=== PATIENT | male | born 1960 | race Caucasian/White ===

== ENCOUNTER → 2021-03-23 | Outpatient (CLI) | payer BC ==
--- NOTE | 2021-03-23 11:06 | RAD ---
Bilateral carotid arterial duplex study 03/23/2021 CLINICAL HISTORY: Pulsations in the right inferior neck. TECHNIQUE: Using a combination of real-time ultrasound imaging and color-flow and pulse Doppler imagi ng techniques, duplex evaluation of the common carotid arteries, carotid bifurcations and internal ca rotid arteries along with the vertebral arteries within the neck was performed. Multiple images were obtained. Stenosis calculations for carotid ultrasound are based on validated velocity measurements which are n oted to correlate with the NASCET methodology. FINDINGS: No significant atheromatous plaque formation seen involving either carotid bifurcation or t he internal carotid arteries bilaterally. The peak systolic velocities are not elevated. No hemodynam ically significant stenosis is seen. Both vertebral arteries demonstrate normal antegrade flow. No aneurysm or abnormal soft tissue mass is seen within the right inferior neck. The visualized right subclavian artery is within normal limits. IMPRESSION: No abnormality is seen. Consensus Panel Dee-scale and Doppler US Criteria for Diagnosis of ICA Stenosis Degree of Stenosis (%) ICA PSV (Cm/sec) Plaque Estimate (%)* Normal <125 None <50 <125 <50 50-69 125-230 >50 >70 but < near occlusion >230 >50 Near occlusion High, low, or undetectable Visible Total occlusion Undetectable Visible, no detectable lumen *Plaque estimate (diameter reduction) with dee-scale and color Doppler US Degree of Stenosis (%) ICA/CCA PSV Ratio ICA EDV (cm/sec) Normal <2.0 <40 <50 <2.0 <40 50-69 2.0-4.0 40-100 >70 but < near occlusion >4.0 >100 Near occlusion Variable Variable Total occlusion Not applicable Not applicable Electronically signed by: Ephraim Samaniego MD (03/23/2021 11:04 AM) [id number]
== END ==
LOC: US 10:15
PROVIDERS: ATTEND Family Medicine
DX: R00.2 Palpitations (principal)
CPT/HCPCS: 93880